=== PATIENT | female | born 1950 | race Caucasian/White ===

== ENCOUNTER 2018-11-10 06:04 | Day surgery (SDC) | payer BC ==
[~2018-11-10] VITALS: Ht 161.3 cm; Wt 56.4 kg
[2018-11-10] MEDS ORDERED: VITAMIN D31000 I1 PO (06:20)
[2018-11-10] MEDS ORDERED: NATURAL E400 IU PO (06:20)
[2018-11-10] MEDS ORDERED: VITAMIN B COMPL1 SGL PO (06:20)
[2018-11-10] MEDS ORDERED: OSCAL 500 TAB500 MG PO (06:21)
[2018-11-10] MEDS ORDERED: GINKGO3 PO (06:21)
[2018-11-10] MEDS ORDERED: VITAMIN C500 MG PO (06:21)
[2018-11-10] MEDS ORDERED: PHARMASSURE CHE30 MG PO (06:22)
[2018-11-10] MEDS ORDERED: [UNRECOGNIZED DRUG - OTHER] PO (06:22)
[2018-11-10] MEDS ORDERED: MASON NATURAL1200 MG PO (06:22)
[2018-11-10] MEDS ORDERED: FOSAMAX 70MG TA70 MG PO (06:23)
[2018-11-10] MEDS ORDERED: CAROTOMAX PO (06:24)
[2018-11-10 06:32] VITALS: BP 131/94; PULSE 67; TEMP 97
[2018-11-10 07:40] VITALS: BP 112/79; PULSE 79; TEMP 97
--- NOTE | 2018-11-10 07:40 | NUR ---
to endo #1 via cart from endo room. pt walked to chair, gait steady, now in room, call light in reach, sips on coffee.
[2018-11-10 07:55] VITALS: BP 117/78; PULSE 62
[2018-11-10 08:10] VITALS: BP 125/79; PULSE 69
--- NOTE | 2018-11-10 08:10 | NUR ---
DR SHARPE SEE PT AND , NO C/O OR QUESTIONS, IV D'CD INTACT, PT DRESSED,
[2018-11-10 08:25] VITALS: BP 124/77; PULSE 62
--- NOTE | 2018-11-10 08:30 | NUR ---
REVIEWED DISCHARGE INST. WITH PT AND , WILL FOLLOWUP NEEDED, REVIEWED PRECAUTIONS AND ACTIVITY WITH VERBAL UNDERSTANDING. PT DISCHARGED VIA W/C TO [facility] AT 0835
[2018-11-10 10:44] VITALS: BP 106/72; PULSE 63
== END 2018-11-10 08:35 | disposition home or self-care (01) ==
LOC: SDCO 06:04
DX: Z12.11 Encounter for screening for malignant neoplasm of colon (principal); D12.3 Benign neoplasm of transverse colon; K63.89 Other specified diseases of intestine; Z88.0 Allergy status to penicillin; Z86.010 Personal history of colon polyps
CPT/HCPCS: J2250; J3010; J7030

== ENCOUNTER → 2018-11-28 | Outpatient (CLI) | payer BC ==
[~2018-11-28] MED LIST: CAROTOMAX PO; FOSAMAX 70MG TA70 MG PO; GINKGO3 PO; MASON NATURAL1200 MG PO; NATURAL E400 IU PO; OSCAL 500 TAB500 MG PO; PHARMASSURE CHE30 MG PO; VITAMIN B COMPL1 SGL PO; VITAMIN C500 MG PO; VITAMIN D31000 I1 PO; [UNRECOGNIZED DRUG - OTHER] PO
== END ==
LOC: MC.RAD 10:20
DX: Z12.31 Encounter for screening mammogram for malignant neoplasm of breast (principal)

== ENCOUNTER → 2019-12-03 | Outpatient (CLI) | payer BC | LOC: MC.RAD 10:42 | DX: Z12.31 Encounter for screening mammogram for malignant neoplasm of breast (principal); N63.10 Unspecified lump in the right breast, unspecified quadrant ==

== ENCOUNTER → 2019-12-05 | Outpatient (CLI) | payer BC | LOC: MC.RAD 13:57 | DX: N63.10 Unspecified lump in the right breast, unspecified quadrant (principal) ==

== ENCOUNTER → 2020-06-02 | Outpatient (CLI) | payer MEDICARE, BC, OTHER ==
[~2020-06-02] MED LIST changes: +PERCOCET 325 MG1 TA2 PO
== END ==
LOC: MC.RAD 07:50
DX: R92.8 Other abnormal and inconclusive findings on diagnostic imaging of breast (principal)

== ENCOUNTER 2020-06-03 22:39 | Emergency (ER) | payer MEDICARE, BC, OTHER ==
[~2020-06-03] VITALS: Ht 160 cm; Wt 56.8 kg
[~2020-06-03 22:39] MED LIST changes: -PERCOCET 325 MG1 TA2 PO
[2020-06-03 22:43] VITALS: BP 136/87; PULSE 80; TEMP 97.3
[2020-06-03] MEDS ORDERED: PERCOCET 325 MG1 TA2 PO (23:44)
== END 2020-06-04 00:07 | disposition home or self-care (01) ==
LOC: COL.ER 22:39
DX: S42.001A Fracture of unspecified part of right clavicle, initial encounter for closed fracture (principal); W19.XXXA Unspecified fall, initial encounter; Y92.410 Unspecified street and highway as the place of occurrence of the external cause

== ENCOUNTER 2020-07-15 15:05 | Outpatient (CLI) | payer MEDICARE, BC, OTHER ==
[~2020-07-15] VITALS: Ht 160 cm; Wt 59.4 kg
[~2020-07-15 15:05] MED LIST changes: +PERCOCET 325 MG1 TA2 PO
[2020-07-15 15:30] VITALS: BP 168/78; PULSE 79; TEMP 97.9
--- NOTE | 2020-07-15 15:51 | NUR ---
Pt tolerated infusion without issue. She will remain in dept for 1 hr post infusion. She denies needs at this time.
--- NOTE | 2020-07-15 16:45 | NUR ---
Pt free of signs of reaction following reclast infusion. IV is DC'd with catheter intact and bleeding controlled at site. Pt ambulates from dept with steady gait.
== END 2020-07-15 16:45 | disposition home or self-care (01) ==
LOC: EUO 15:05
DX: M81.0 Age-related osteoporosis without current pathological fracture (principal)
CPT/HCPCS: J3489

== ENCOUNTER → 2020-12-04 | Outpatient (CLI) | payer MEDICARE, BC, OTHER | LOC: MC.RAD 08:30 | DX: Z12.31 Encounter for screening mammogram for malignant neoplasm of breast (principal) ==

== ENCOUNTER → 2021-12-07 | Outpatient (CLI) | payer MEDICARE, BC, OTHER | LOC: MC.RAD 08:41 | DX: Z12.31 Encounter for screening mammogram for malignant neoplasm of breast (principal) ==

== ENCOUNTER 2022-11-13 12:41 | Emergency (ER) | payer MEDICARE, BC, OTHER ==
[~2022-11-13] VITALS: Ht 160 cm; Wt 57.7 kg
[2022-11-13] MEDS ORDERED: BACTRIM DS 8001 TAB PO (13:21)
[2022-11-13 13:25] VITALS: BP 140/72; PULSE 80; TEMP 98.1
== END 2022-11-13 13:25 | disposition home or self-care (01) ==
LOC: COL.ER 12:41
DX: L03.116 Cellulitis of left lower limb (principal); Z88.0 Allergy status to penicillin

== ENCOUNTER → 2022-12-16 | Outpatient (CLI) | payer MEDICARE, BC, OTHER ==
[~2022-12-16] MED LIST changes: +BACTRIM DS 8001 TAB PO
== END ==
LOC: MC.RAD 07:51
DX: Z12.31 Encounter for screening mammogram for malignant neoplasm of breast (principal)